=== PATIENT | female | born 1965 ===

== ENCOUNTER 2017-05-29 03:42 | Emergency (ER) | payer SELFPAY ==
[2017-05-29 04:09] VITALS: BP 130/73; PULSE 98; RESP 17; TEMP 98.1; O2SAT 99
[2017-05-29 04:36] LABS: SQUAMOUS EPITHIAL 2 /hpf (0-5); URINE BACTERIA RARE (<OCC); URINE BILIRUBIN NEGATIVE (NEGATIVE); URINE BLOOD LARGE (NEGATIVE); URINE CLARITY CLOUDY (Clear); URINE COLOR YELLOW (YELLOW); URINE GLUCOSE (UA) NEG (Normal); URINE LEUKOCYTE ESTERASE LARGE Leu/uL (Negative); URINE NITRATE NEGATIVE (NEGATIVE); URINE PROTEIN 100 mg/dL (NEGATIVE); URINE UROBILINOGEN 0.2-1.0 mg/dL (0.2-1.0)
--- NOTE | 2017-05-29 04:41 | ED PDOC ---
HPI: Female Pain Time Seen by Provider: 05/29/17 03:45 Chief Complaint (Nursing): Female Genitourinary Chief Complaint (Provider): Female Genitourinary History Per: Patient History/Exam Limitations: no limitations Onset/Duration Of Symptoms: Days (x2 days) Current Symptoms Are (Timing): Still Present Additional Complaint(s): 52 y/o female presents to the ED complaining of dysuria x 2days. Patient is also complaining of urinary frequency, burning sensation, and hematuria. Reports having some discomfort in lower back. Denies fever, nausea, vomiting, diarrhea or any further medical complaints. Past Medical History Reviewed: Historical Data, Nursing Documentation, Vital Signs Vital Signs: Last Vital Signs Temp 98.1 F 05/29/17 04:06 Pulse 98 H 05/29/17 04:06 Resp 17 05/29/17 04:06 BP 130/73 05/29/17 04:06 Pulse Ox 99 05/29/17 04:06 - Medical History PMH: Arthritis, Diabetes, HTN - Surgical History Surgical History: No Surg Hx - Family History Family History: States: Unknown Family Hx - Home Medications Home Medications: Ambulatory Orders Medication Instructions Recorded Nitrofurantoin Macrocrystals 100 mg PO BID #14 cap 05/29/17 [Macrobid] Phenazopyridine HCl [Pyridium] 100 mg PO TID #6 tab 05/29/17 - Allergies Allergies/Adverse Reactions: Allergies Allergy/AdvReac Type Severity Reaction Status Date / Time No Known Allergies Allergy Verified 05/29/17 04:09 Review of Systems ROS Statement: Except As Marked, All Systems Reviewed And Found Negative (As per HPI, otherwise negative) Constitutional: Negative for: Fever Gastrointestinal: Negative for: Nausea, Vomiting, Diarrhea Genitourinary Female: Positive for: Dysuria, Frequency, Hematuria Physical Exam - Reviewed Nursing Documentation Reviewed: Yes Vital Signs Reviewed: Yes - Physical Exam Appears: Positive for: Non-toxic, No Acute Distress Head Exam: Positive for: ATRAUMATIC, NORMAL INSPECTION, NORMOCEPHALIC Skin: Positive for: Normal Color, Warm, Dry Eye Exam: Positive for: EOMI, Normal appearance, PERRL ENT: Positive for: Normal ENT Inspection Neck: Positive for: Normal, Painless ROM, Supple Cardiovascular/Chest: Positive for: Regular Rate, Rhythm. Negative for: Murmur Respiratory: Positive for: Normal Breath Sounds. Negative for: Accessory Muscle Use, Respiratory Distress Gastrointestinal/Abdominal: Positive for: Normal Exam, Bowel Sounds, Soft. Negative for: Tenderness Back: Positive for: Other (Mild CVA tenderness ) Extremity: Positive for: Normal ROM. Negative for: Deformity Neurologic/Psych: Positive for: Alert, Oriented (x3) - ECG O2 Sat by Pulse Oximetry: 99 (RA) Pulse Ox Interpretation: Normal Medical Decision Making Medical Decision Making: Time: 04:17 Initial Impression: 52 y/o female with dysuria Plan: Urine Urine dipstick Macrobid 100mg PO Pyridium 200mg PO Culture urine Urinalysis Reevaluation Time: --Urine dip consistent with UTI Upon provider reevaluation patient is feeling better, is medically stable, and requires no further treatment in the ED at this time. Patient will be dishcharged home with Rx for Macrobid 100mg PO and Pyridium 200mg PO . Counseling was provided and all questions were answered regarding diagnosis. There is agreement to discharge plan. Return if symptoms persist or worsen. Clinical Impression: UTI Scribe Attestation: Documented by Yasemin Burgos acting as a scribe for Sunny Kelley MD. Scribe Attestation: All medical record entries made by the Scribe were at my direction and personally dictated by me. I have reviewed the chart and agree that the record accurately reflects my personal performance of the history, physical exam, medical decision making, and the department course for this patient. I have also personally directed, reviewed, and agree with the discharge instructions and disposition. Disposition - Clinical Impression Clinical Impression: UTI (urinary tract infection) - Disposition Disposition: Routine/Home Disposition Time: 04:30 Condition: STABLE Prescriptions: Nitrofurantoin Macrocrystals [Macrobid] 100 mg PO BID #14 cap Phenazopyridine HCl [Pyridium] 100 mg PO TID #6 tab Instructions: Urinary Tract Infections in Adults Forms: [facility] (Urdu) Print Language: TURKISH
== END 2017-05-29 04:46 | disposition home or self-care (01) ==
LOC: H.ER 03:42
DX: N39.0 Urinary tract infection, site not specified (principal); E11.9 Type 2 diabetes mellitus without complications; I10 Essential (primary) hypertension